=== PATIENT | female | born 1980 | race Caucasian/White ===

== ENCOUNTER → 2017-12-24 10:37 | Outpatient (CLI) | payer MEDICAID ==
[2017-12-24 11:15] LABS: BASOPHILS 0.3 % (0-2); EOSINOPHILS 0.9 % (0-7); HEMATOCRIT 31.3 % (36.0-48.0); HEMOGLOBIN 10.7 g/dL (12-16); IMMATURE GRANULOCYTES 1.8 % (0-5); LYMPHOCYTES 15.8 % (15-50); MCH 32.3 pg (26.0-34.0); MCHC 34.2 g/dL (31.0-37.0); MCV 94.6 fL (80.0-100.0); MONOCYTES 7.2 % (2-11); PLATELET COUNT 242 10x3/uL (130-400); RBC 3.31 10x6/uL (4.00-5.40); RDW 13.3 % (11.5-14.5); WBC 18.4 10x3/uL (4.8-10.8)
[2017-12-24 11:43] LABS: ALKALINE PHOSPHATASE 176 U/L (46-116); ALT (SGPT) 13 U/L (10-68); BILIRUBIN - TOTAL 0.14 mg/dL (0.2-1.3); CALC OSMOLALITY 269 mosm/kg (275-300); CALCIUM 8.2 mg/dL (8.5-10.1); CARBON DIOXIDE 21.7 mmol/L (21.0-32.0); CHLORIDE - SERUM 104 mmol/L (98-107); CREATININE - SERUM 0.6 mg/dL (0.6-1.3); GLUCOSE 75 mg/dL (74-106); POTASSIUM - SERUM 3.6 mmol/L (3.5-5.1); SODIUM 137 mmol/L (136-145); UREA NITROGEN 5 mg/dL (7-18); URIC ACID 5.1 mg/dL (2.6-7.2); eGFR NON AFRICAN AMERICAN > 90 mL/min (90-120)
[2017-12-24 11:49] LABS: BILIRUBIN - DIRECT 0.02 mg/dL (0.00-0.30); BILIRUBIN - INDIRECT 0.12 mg/dL (0.00-1.00)
== END | disposition home or self-care (01) ==
LOC: D.LDO 10:37
PROVIDERS: Obstetrics & Gynecology
DX: O12.13 Gestational proteinuria, third trimester (principal); Z3A.38 38 weeks gestation of pregnancy

== ENCOUNTER → 2017-12-27 12:40 | Outpatient (CLI) | payer MEDICAID | END | disposition home or self-care (01) | LOC: D.LDO 12:40 | DX: O12.13 Gestational proteinuria, third trimester (principal); Z3A.38 38 weeks gestation of pregnancy ==

== ENCOUNTER 2017-12-31 04:00 | Inpatient (IN) | payer MEDICAID ==
[~2017-12-31] VITALS: Ht 167.6 cm; Wt 82.6 kg
[2017-12-31 05:27] VITALS: BP 143/98; Ht 167.6 cm; Wt 82.6 kg
[2017-12-31] MEDS ORDERED: PRENAVITE1 TAB PO (05:27)
[2017-12-31 06:10] LABS: HEMATOCRIT 31.9 % (36.0-48.0); HEMOGLOBIN 10.8 g/dL (12-16); MCH 32.4 pg (26.0-34.0); MCHC 33.9 g/dL (31.0-37.0); MCV 95.8 fL (80.0-100.0); MEAN PLATELET VOLUME 10.6 fL (7.4-10.4); RBC 3.33 10x6/uL (4.00-5.40); RDW 13.8 % (11.5-14.5); WBC 16.9 10x3/uL (4.8-10.8)
[2017-12-31 07:32] LABS: APPEARANCE HAZY (CLEAR); BILIRUBIN NEGATIVE (NEGATIVE); COLOR YELLOW (YELLOW); GLUCOSE NEGATIVE (NEGATIVE); KETONE NEGATIVE (NEGATIVE); NITRITE NEGATIVE (NEGATIVE); PROTEIN 2+ mg/dL (NEGATIVE); SPECIFIC GRAVITY 1.015 (1.005-1.020); UROBILINOGEN NORMAL (NORMAL)
[2017-12-31 07:36] LABS: BACTERIA MANY /hpf (NONE SEEN); EPITHELIAL CELLS 0-5 /hpf (0-5); GRANULAR CAST RARE /lpf (NONE SEEN); MUCUS <1+ /lpf (NONE SEEN); RED CELLS - URINE 25-50 /hpf (0-5); WHITE CELLS - URINE 0-5 /hpf (0-5)
[2018-01-01 06:14] LABS: RAPID PLASMA REAGIN Non Reactive (Non Reactive)
[2018-01-01 06:38] LABS: BASOPHILS 0.2 % (0-2); EOSINOPHILS 0.5 % (0-7); HEMATOCRIT 31.5 % (36.0-48.0); HEMOGLOBIN 10.5 g/dL (12-16); IMMATURE GRANULOCYTES 1.3 % (0-5); LYMPHOCYTES 14.9 % (15-50); MCH 31.8 pg (26.0-34.0); MCHC 33.3 g/dL (31.0-37.0); MCV 95.5 fL (80.0-100.0); MEAN PLATELET VOLUME 10.1 fL (7.4-10.4); MONOCYTES 7.5 % (2-11); NEUTROPHILS 75.6 % (40-80); PLATELET COUNT 197 10x3/uL (130-400); RDW 13.8 % (11.5-14.5); WBC 19.2 10x3/uL (4.8-10.8)
[2018-01-01 19:49] VITALS: BP 128/79
[2018-01-02 07:45] VITALS: BP 121/89
[2018-01-02] MEDS ORDERED: HYDROCODON-ACE1 EAC7 PO (12:30)
[2018-01-02] MEDS ORDERED: IBUPROFEN600 MG PO (12:31)
== END 2018-01-02 14:45 | disposition home or self-care (01) | DRG 774 ==
LOC: D.SDCHOLD 04:00 → D.LD 04:58
PROVIDERS: Obstetrics & Gynecology
PROC: 10E0XZZ Delivery of Products of Conception, External Approach (ICD-10-PCS; principal; 2017-12-31)
PROC: 3E033VJ Introduction of Other Hormone into Peripheral Vein, Percutaneous Approach (ICD-10-PCS; 2017-12-31)
DX: O99.824 Streptococcus B carrier state complicating childbirth (principal); O75.3 Other infection during labor; O26.833 Pregnancy related renal disease, third trimester; Z37.0 Single live birth; Z3A.39 39 weeks gestation of pregnancy; O99.334 Smoking (tobacco) complicating childbirth